=== PATIENT | female | born 1980 | race Caucasian/White ===

== ENCOUNTER 2024-01-27 11:01 | Emergency (ER) | payer SELFPAY | END 2024-01-27 11:03 | disposition left against medical advice (07) | LOC: M ED 11:01 | DX: Z53.21 Procedure and treatment not carried out due to patient leaving prior to being seen by health care provider (principal) ==

== ENCOUNTER 2025-06-01 09:57 | Emergency (ER) | payer OTHER, SELFPAY ==
[~2025-06-01] VITALS: Ht 177.8 cm; Wt 113.0 kg
[2025-06-01] MEDS ORDERED: VITA200032 (10:49)
[2025-06-01] MEDS ORDERED: GABA-1172 (10:49)
[2025-06-01] MEDS ORDERED: SERT50TA29 (10:49)
[2025-06-01] MEDS ORDERED: CYAN-1 (10:49)
[2025-06-01] MEDS ORDERED: ATEN25TA (10:49)
[2025-06-01] MEDS ORDERED: OMEP-173 (10:49)
[2025-06-01 10:55] LABS: BASO # 0.0 10^3/uL (0.0-0.2); BASO % 0.6 % (0.0-1.0); EOS # 0.2 10^3/uL (0.0-0.5); EOS % 3.2 % (0.0-3.0); LYMPH # 2.5 10^3/uL (1.5-5.0); LYMPH % 34.2 % (24.0-44.0); MONO # 0.4 10^3/uL (0.0-0.8); MONO % 5.3 % (2.0-8.0); NEUTROPHILS # 4.1 10^3/uL (1.5-8.5); NEUTROPHILS % 56.4 % (36.0-66.0); PLATELET COUNT, AUTOMATED 278 10^3/uL (150-450)
[2025-06-01 10:58] LABS: KETONE, URINE AUTO RFX NEGATIVE (NEGATIVE); LEUKOCYTE ESTERASE UR AUTO RFX NEGATIVE (NEGATIVE); MUCUS, URINE RFX LARGE (NEGATIVE); NITRITE, URINE AUTO RFX NEGATIVE (NEGATIVE); RBC, URINE AUTO RFX 2 /HPF (0-3); SQUAM EPITHELIAL CELL UR AURFX 3 /HPF (0-6); WBC, URINE AUTO RFX 3 /HPF (0-3)
[2025-06-01 11:20] LABS: ALT/SGPT 22 U/L (7.0-40); AST/SGOT 16 U/L (<34); C REACTIVE PROTEIN QUANTITATIV < 0.50 MG/DL (<1.0); CALCIUM LEVEL 9.9 MG/DL (8.5-10.1); CARBON DIOXIDE LEVEL 25 MMOL/L (20-31); CHLORIDE LEVEL 107 MMOL/L (98-107); CREATININE FOR GFR 0.88 MG/DL (0.55-1.30); GLOMERULAR FILTRATION RATE 83.1 (>58); HCG, SERUM QUALITATIVE NEGATIVE (NEGATIVE); POTASSIUM SERUM 4.5 MMOL/L (3.5-5.1); SODIUM LEVEL 143 MMOL/L (136-145)
[2025-06-01] MEDS: KETOROLAC 30 MG/ML 1 ML VIAL IV ONE (11:20)
[2025-06-01] MEDS ORDERED: ISOVUE-370 76% 100 ML VIAL As Ordered ONE (11:49)
[2025-06-01 13:22] LABS: ERYTHROCYTE SEDIMENTATION RATE 43 mm/hr (0-20)
[2025-06-01 14:24] VITALS: BP 166/91; TEMP 97.5; O2SAT 100
[2025-06-01] MEDS: MAGNESIUM CITRATE 300 ML BTL PO ONE (14:24)
== END 2025-06-01 14:38 | disposition home or self-care (01) ==
LOC: M ED 10:50
DX: D25.9 Leiomyoma of uterus, unspecified (principal); K58.9 Irritable bowel syndrome, unspecified; K21.9 Gastro-esophageal reflux disease without esophagitis; Z88.1 Allergy status to other antibiotic agents; Z88.8 Allergy status to other drugs, medicaments and biological substances; Z79.899 Other long term (current) drug therapy
CPT/HCPCS: 74177; 76830; 76856; 80053; 81001; 83605; 84703; 85025; 85652; 86140; 93976; 96374; 99284; J1885; Q9967

== ENCOUNTER → 2025-09-03 | Outpatient (REF) | payer OTHER ==
[~2025-09-03] MED LIST: ATEN25TA PO; CYAN-1 PO; GABA-1172 PO; OMEP-173 PO; SERT50TA29 PO; VITA200032 PO
== END ==
LOC: M SFHCWAGY 10:11
PROVIDERS: ATTEND Obstetrics & Gynecology
DX: D25.1 Intramural leiomyoma of uterus (principal)

== ENCOUNTER → 2025-09-17 | Day surgery (SDC) | payer OTHER ==
[~2025-09-17] VITALS: Ht 177.8 cm; Wt 117.3 kg
[~2025-09-17] MED LIST changes: +ACETAMINOPHEN 1000MG/100ML IV BAG As Ordered ONE; +COLA100C5 PO; +HYDROmorphone HCL 2 MG/ML 1 ML VIAL As Ordered ONE; +IBUP80TA PO; +KETOROLAC 30 MG/ML 1 ML VIAL As Ordered ONE; +LIDOCAINE 2% 100 MG/5 ML SDV (FOR ANES.) As Ordered ONE; +MIDAZOLAM INJ 2 MG/2 ML VIAL As Ordered ONE; +MORPHINE 2 MG/ML 1 ML VIAL IV PRN; +ONDA-282 PO; +ONDANSETRON 4MG/2ML VIAL As Ordered ONE; +OXYC1TAB23 PO; +PHENYLephrine 500MCG 5ML (100MCG/ML) SYRINGE As Ordered ONE; +ROCURONIUM BROMIDE 50MG/5ML VIAL As Ordered ONE; +SUGAMMADEX SODIUM 500 MG/5 ML VIAL As Ordered ONE; +dexAMETHasone 4 MG/ML 1 ML VIAL As Ordered ONE; +dexmedeTOMIDine (4 MCG/ML) 200 MCG/50 ML BTL As Ordered ONE
[2025-09-17] MEDS: LR 1,000 ML IV SCH (09:20)
[2025-09-17 09:55] LABS: PLATELET COUNT, AUTOMATED 285 10^3/uL (150-450)
[2025-09-17 09:59] LABS: ALT/SGPT 39 U/L (7.0-40); AST/SGOT 33 U/L (<34); CALCIUM LEVEL 9.4 MG/DL (8.5-10.1); CARBON DIOXIDE LEVEL 22 MMOL/L (20-31); CHLORIDE LEVEL 106 MMOL/L (98-107); CREATININE FOR GFR 0.75 MG/DL (0.55-1.30); GLOMERULAR FILTRATION RATE > 90.0 (>58); POTASSIUM SERUM 4.4 MMOL/L (3.5-5.1); SODIUM LEVEL 139 MMOL/L (136-145)
[2025-09-17] MEDS: ceFAZolin SOD 2 GM IV ONCE IV ONE (10:40)
[2025-09-17] MEDS: METHYLENE BLUE 0.5% (5 MG/ML) 10 ML AMP As Ordered ONE (11:58)
[2025-09-17] MEDS: HYDROMORPHONE HCL 0.5 MG/0.5 ML SYRINGE IV PRN (12:51)
[2025-09-17] MEDS: ONDANSETRON 4MG/2ML VIAL IV PRN (13:13)
[2025-09-17 16:11] VITALS: BP 111/60; TEMP 97.5; O2SAT 98
== END | disposition home or self-care (01) ==
LOC: M SDC 09:01
PROVIDERS: ATTEND Obstetrics & Gynecology
DX: D25.1 Intramural leiomyoma of uterus (principal); N80.03 Adenomyosis of the uterus; N88.8 Other specified noninflammatory disorders of cervix uteri; N83.292 Other ovarian cyst, left side; N83.8 Other noninflammatory disorders of ovary, fallopian tube and broad ligament; R10.20 Pelvic and perineal pain unspecified side; I10 Essential (primary) hypertension; K21.9 Gastro-esophageal reflux disease without esophagitis; K58.9 Irritable bowel syndrome, unspecified; Z79.899 Other long term (current) drug therapy; F32.A Depression, unspecified; Z88.8 Allergy status to other drugs, medicaments and biological substances; Z88.1 Allergy status to other antibiotic agents; F41.9 Anxiety disorder, unspecified
CPT/HCPCS: 36415; 58571; 58662; 80053; 81025; 85027; 86850; 86900; 86901; 88307; 93005; J0131; J0665; J0688; J1100; J1171; J1885; J2250; J2371; J2405; J3010; J3490; S2900